=== PATIENT | male | born 1995 | race Caucasian/White ===

== ENCOUNTER 2017-08-31 18:12 | Emergency (ER) | payer BC ==
[~2017-08-31] VITALS: Ht 172.7 cm; Wt 68.2 kg
[2017-08-31 18:14] VITALS: BP 130/70; PULSE 93; RESP 16; TEMP 99.3; O2SAT 96
--- NOTE | 2017-08-31 20:23 | PD ---
HPI Chief Complaint: Cold / Flu Symptoms Time Seen by Provider: 20:23 Travel History International Travel<30 days: No Contact w/Intl Traveler<30days: No Traveled to known affect area: No History of Present Illness HPI 22-year-old male presents to emergency department for evaluation of sinus congestion, pressure, ear pain 2 days. He states he had fever 2 days ago but that has resolved. Denies any cough or chest congestion. Mild sore throat. Patient would also like me to evaluate his left eye. He states that his contact stuck on it 2 days ago. And he pulled it off and in the process it folded in half. He believes he may have scratched his cornea in the process. Reports mild pain in the left eye. No visual disturbances. He is not currently using his contacts but has noticed a redness and irritation of the left eye. He has no other symptoms to report. [facility] Past Medical History Medical History: Denies Significant Hx Social History Alcohol Use: No Tobacco Use: No Substance Use: No Allergies-Medications (Allergen,Severity, Reaction): Coded Allergies: No Known Allergies (Unverified , 08/31/17) Reported Meds & Prescriptions Reported Meds & Active Scripts Active Ocuflox Opth Drops (Ofloxacin Opth Drops) 0.3 % Drops 1 Drop LEFT EYE Q6HR 7 Days Nasonex Nasal [place] (Mometasone Furoate) 50 Mcg/Act Naspr 2 [place] EACH NARE DAILY Review of Systems Except as stated in HPI: all other systems reviewed are Neg Physical Exam Narrative GENERAL: Well-nourished male patient in no acute distress. SKIN: Focused skin assessment warm/dry. HEAD: Atraumatic. Normocephalic. No tenderness elicited palpation of the sinuses EYES: Pupils equal and round. No scleral icterus. Injection of the left I. There is a small corneal abrasion at the corneal limbal junction identified under fluoroscein exam ENT: No nasal bleeding or discharge. Mucous membranes pink and moist. Pharynx with mild erythema without edema or exudate. Nasal turbinates are inflamed. NECK: Trachea midline. No JVD. CARDIOVASCULAR: Regular rate and rhythm. No murmur appreciated. RESPIRATORY: No accessory muscle use. Clear to auscultation. Breath sounds equal bilaterally. GASTROINTESTINAL: Abdomen soft, non-tender, nondistended. Hepatic and splenic margins not palpable. MUSCULOSKELETAL: No obvious deformities. No clubbing. No cyanosis. No edema. NEUROLOGICAL: Awake and alert. No obvious cranial nerve deficits. Motor grossly within normal limits. Normal speech. PSYCHIATRIC: Appropriate mood and affect; insight and judgment normal. Data Data Last Documented VS Vital Signs Date Time Temp Pulse Resp B/P (MAP) Pulse Ox O2 Delivery O2 Flow Rate FiO2 08/31/17 20:44 08/31/17 18:14 99.3 93 16 96 Orders Orders Influenzae A/B Antigen (08/31/17 18:24) Ed Discharge Order (08/31/17 20:29) MDM Medical Decision Making Medical Screen Exam Complete: Yes Emergency Medical Condition: Yes Medical Record Reviewed: Yes Differential Diagnosis Sinusitis versus URI versus pharyngitis versus conjunctivitis versus corneal abrasion versus foreign body Narrative Course 22-year-old male presents emergency department for evaluation. Patient appears overall well. He does have a corneal abrasion of the left I. I believe his other symptoms are viral and have counseled him on symptom management. He is encouraged to follow-up with primary care provider and return immediately with any acute worsening of symptoms. Diagnosis Primary Impression: Sinusitis Qualified Codes: J01.00 - Acute maxillary sinusitis, unspecified Additional Impression: Left corneal abrasion Qualified Codes: S05.02XA - Injury of conjunctiva and corneal abrasion without foreign body, left eye, initial encounter Referrals: [facility] Primary Care Physician Patient Instructions: Corneal Abrasion (ED), General Instructions, Sinusitis ( ED) Additional Instructions: Do not rub your eye Do not wear contacts until medicine is complete Warm compresses to remove drainage Cool compresses to alleviate irritation Tylenol or ibuprofen as directed on the package as needed for fever or pain Maintain adequate oral hydration Follow up with a primary care provider Return to ED with acute worsening of symptoms Med/Other Pt SpecificInfo: Prescription(s) given Scripts Ofloxacin Opth Drops (Ocuflox Opth Drops) 0.3 % Drops 1 DROP LEFT EYE Q6HR for Infection for 7 Days, #1 BOTTLE 0 Refills Prov: Radha Bowser 08/31/17 Mometasone Nasal [place] (Nasonex Nasal [place]) 50 Mcg/Act Naspr 2 SPRAY EACH NARE DAILY for Allergy Management, #1 BOTTLE 0 Refills Prov: Radha Bowser 1/12/18 Disposition: 01 DISCHARGE HOME Condition: Stable Bowser,Radha [employer]IS[employer] Aug 31, 2017 20:23
[2017-08-31] MEDS ORDERED: OCUF0.3D LEFT EYE (20:32)
[2017-08-31] MEDS ORDERED: MOME17I EACH NARE (20:32)
== END 2017-08-31 20:48 | disposition home or self-care (01) ==
LOC: NEPK 18:12
DX: J01.00 Acute maxillary sinusitis, unspecified (principal); H18.822 Corneal disorder due to contact lens, left eye
CPT/HCPCS: 87804; 99284